=== PATIENT | female | born 1960 | race African-American/Black ===

== ENCOUNTER 2017-02-04 13:41 | Emergency (ER) | payer OTHER ==
[~2017-02-04] VITALS: Ht 172.7 cm; Wt 135.5 kg
[~2017-02-04 13:41] MED LIST: CYCL-36; GLUCTAB; INSULIN; INSULIN SLIDING SCAL; IRBE1TAB37; LANTUSP; LASI20TA; LORA-392; LORT7.5T3; PIOG30; POTA-243; RANI150; SERT100; WELL200T
[2017-02-04 13:47] VITALS: BP 185/89; PULSE 75; RESP 18; TEMP 97.7; O2SAT 100
--- NOTE | 2017-02-04 15:21 | RADRPT ---
EXAM DATE/TIME: 02/04/2017 14:29 [place] COMPARISON: No previous studies available for comparison. INDICATIONS : Shortness of breath and dizziness. MEDICAL HISTORY : Diabetes mellitus type II. Hypertension Asthma. SURGICAL HISTORY : None. ENCOUNTER: Initial ACUITY: 1 day PAIN SCORE: 0/10 LOCATION: Bilateral chest FINDINGS: PA and lateral views of the chest demonstrate the lungs to be symmetrically aerated without evidence of mass, infiltrate or effusion. The cardiomediastinal contours are unremarkable. Osseous structure s are intact. CONCLUSION: No acute disease. Ezekiel Staley MD on February 04, 2017 at 15:19 Board Certified Radiologist. This report was verified electronically.
[2017-02-04] MEDS ORDERED: SODIUM CHLOR 0.9% 1000 ML INJ 1,000 ML IV SCH (15:59)
[2017-02-04] MEDS ORDERED: SODIUM CHLORIDE 0.9% FLUSH 10 ML FLUSH IV FLUSH PRN (16:00)
[2017-02-04] MEDS ORDERED: KETOROLAC TROMETHAMINE 30 MG/ML (IVP) VIAL IVP ONE (16:00)
[2017-02-04] MEDS ORDERED: ONDANSETRON HCL 4 MG/2 ML VIAL IVP ONE (16:00)
[2017-02-04] MEDS ORDERED: BUPR150XL PO (16:07)
[2017-02-04] MEDS ORDERED: NOVONP2 SQ (16:07)
[2017-02-04] MEDS ORDERED: TRAZ1TAB14 PO (16:07)
[2017-02-04] MEDS ORDERED: LYRI200C PO (16:07)
[2017-02-04] MEDS ORDERED: OXYC15TA PO (16:07)
[2017-02-04] MEDS ORDERED: LOSA50TA PO (16:07)
[2017-02-04] MEDS ORDERED: VENL75TA PO (16:07)
[2017-02-04] MEDS ORDERED: METF1000 PO (16:07)
[2017-02-04] MEDS ORDERED: LANTUS2P SQ (16:07)
[2017-02-04] MEDS ORDERED: LORA-392 PO (16:07)
[2017-02-04] MEDS ORDERED: NOVOINJ3 SQ (16:15)
[2017-02-04 16:26] LABS: AUTOMATED NEUTROPHIL # 4.6 TH/MM3 (1.8-7.7); BASOPHIL % 0.4 % (0.0-2.0); EOSINOPHIL # 0.1 TH/MM3 (0-0.4); EOSINOPHIL % 1.1 % (0.0-4.0); HEMATOCRIT 35.4 % (35.0-46.0); HEMO FLAGS DIFF FINAL; LYMPH % 31.2 % (9.0-44.0); LYMPHOCYTE # 2.4 TH/MM3 (1.0-4.8); MEAN CELL VOLUME 86.2 FL (80.0-100.0); MEAN CORPUSCULAR HEMOGLOBIN 28.3 PG (27.0-34.0); MEAN CORPUSCULAR HGB CONC 32.9 % (32.0-36.0); MONO % 6.3 % (0.0-8.0); PLATELET COUNT 287 TH/MM3 (150-450); RED BLOOD COUNT 4.11 MIL/MM3 (4.00-5.30); WHITE BLOOD COUNT 7.6 TH/MM3 (4.0-11.0)
[2017-02-04 16:37] LABS: ALT (GPT) 24 U/L (10-53); AST (GOT) 17 U/L (15-37); BICARBONATE 24.5 MEQ/L (21.0-32.0); BLOOD UREA NITROGEN 11 MG/DL (7-18); GLOMERULAR FILTRATION RATE 79 ML/MIN (>89)
[2017-02-04 16:39] LABS: ALKALINE PHOSPHATASE 170 U/L (45-117); ANION GAP 9 MEQ/L (5-15); CHLORIDE 109 MEQ/L (98-107); SODIUM (NA) 142 MEQ/L (136-145); TOTAL BILIRUBIN ADULT 0.4 MG/DL (0.2-1.0)
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
--- NOTE | 2017-02-05 13:31 | EKG ---
Date Performed: 02/04/2017 Time Performed: 16:23:05 PTAGE: 56 years EKG: Sinus rhythm WITH FIRST DEGREE AV BLOCK ABNORMAL ECG Compared to prior tracing no significant change PREVIOUS TRACING : 05/29/2006 16.48 DOCTOR: Virgilio Sherwood Interpretating Date/Time 02/05/2017 13:28:43
== END 2017-02-04 17:19 | disposition home or self-care (01) ==
LOC: NEPD 13:41
DX: T65.91XA Toxic effect of unspecified substance, accidental (unintentional), initial encounter (principal); R07.89 Other chest pain; R06.2 Wheezing; R11.10 Vomiting, unspecified; E87.6 Hypokalemia; R42 Dizziness and giddiness; R51 Headache; I44.0 Atrioventricular block, first degree; R94.31 Abnormal electrocardiogram [ECG] [EKG]
CPT/HCPCS: 71020; 80053; 83690; 84484; 85025; 93005; 96374; 96375; 99285; J1885; J2405; J7030

== ENCOUNTER 2017-03-02 21:32 | Emergency (ER) | payer OTHER ==
[~2017-03-02] VITALS: Ht 172.7 cm; Wt 130.0 kg
[~2017-03-02 21:32] MED LIST changes: +BUPR150XL PO; -CYCL-36; -GLUCTAB; -INSULIN; -INSULIN SLIDING SCAL; -IRBE1TAB37; +LANTUS2P SQ; -LANTUSP; -LASI20TA; -LORA-392; +LORA-392 PO; -LORT7.5T3; +LOSA50TA PO; +LYRI200C PO; +METF1000 PO; +NOVOINJ3 SQ; +OXYC15TA PO; -PIOG30; -POTA-243; -RANI150; -SERT100; +TRAZ1TAB14 PO; +VENL75TA PO; -WELL200T
[2017-03-02 21:34] VITALS: BP 223/114; PULSE 73; RESP 18; TEMP 98.9; O2SAT 100
[2017-03-03] MEDS ORDERED: TIZA4CAP3 PO (00:22)
[2017-03-03] MEDS ORDERED: POLY17S PO (00:22)
[2017-03-03] MEDS ORDERED: DOCU1CAP66 (00:22)
[2017-03-03] MEDS ORDERED: DICL1KIT5 TOPICAL (00:22)
[2017-03-03] MEDS ORDERED: BACL10TA PO (00:22)
[2017-03-03] MEDS ORDERED: ALBUAER3 INH (00:22)
[2017-03-03] MEDS ORDERED: TRAZ100T10 PO (00:22)
[2017-03-03] MEDS ORDERED: ATOR10TA15 PO (00:22)
[2017-03-03] MEDS ORDERED: VENL150T PO (00:22)
[2017-03-03] MEDS ORDERED: ROBA750T PO (00:43)
[2017-03-03] MEDS ORDERED: MOBI15TA PO (00:43)
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
[2017-03-03] MEDS ORDERED: KETOROLAC TROMETHAMINE 60 MG/2 ML (IM) VIAL IM ONE (00:45)
[2017-03-03] MEDS ORDERED: ORPHENADRINE INJ 60 MG/2 ML AMP IM ONE (00:45)
== END 2017-03-03 01:15 | disposition home or self-care (01) ==
LOC: NEPC 21:32
DX: R51 Headache (principal); M54.2 Cervicalgia; I10 Essential (primary) hypertension; E11.9 Type 2 diabetes mellitus without complications; K21.9 Gastro-esophageal reflux disease without esophagitis; E78.00 Pure hypercholesterolemia, unspecified; J45.909 Unspecified asthma, uncomplicated; F41.9 Anxiety disorder, unspecified; F32.9 Major depressive disorder, single episode, unspecified
CPT/HCPCS: 96372; 99284; J1885; J2360

== ENCOUNTER 2017-03-19 13:59 | Emergency (ER) | payer OTHER ==
[~2017-03-19] VITALS: Ht 165.1 cm; Wt 130.0 kg
[~2017-03-19 13:59] MED LIST changes: +ALBUAER3 INH; +ATOR10TA15 PO; +BACL10TA PO; -BUPR150XL PO; +DICL1KIT5 TOPICAL; +DOCU1CAP66; -LORA-392 PO; +MOBI15TA PO; +POLY17S PO; +ROBA750T PO; +TIZA4CAP3 PO; +TRAZ100T10 PO; -TRAZ1TAB14 PO; +VENL150T PO
[2017-03-19 14:28] VITALS: BP 148/72; PULSE 89; RESP 17; TEMP 97; O2SAT 99
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
--- NOTE | 2017-03-19 16:02 | RADRPT ---
EXAM DATE/TIME: 03/19/2017 15:39 [facility] COMPARISON: No previous studies available for comparison. INDICATIONS : Trauma, patient fell and hit head. RADIATION DOSE: 56.35 CTDIvol (mGy) MEDICAL HISTORY : Hypertension. Diabetes mellitus type 1. SURGICAL HISTORY : Fusion, cervical. Hysterectomy. ENCOUNTER: Initial ACUITY: 1 day PAIN SCALE: 9/10 LOCATION: cranial TECHNIQUE: Multiple contiguous axial images were obtained of the head. Using automated exposure control and adj ustment of the mA and/or kV according to patient size, radiation dose was kept as low as reasonably a chievable to obtain optimal diagnostic quality images. DICOM format image data is available electro nically for review and comparison. FINDINGS: CEREBRUM: The ventricles are normal for age. No evidence of midline shift, mass lesion, hemorrhage or acute in farction. No extra-axial fluid collections are seen. POSTERIOR FOSSA: The cerebellum and brainstem are intact. The 4th ventricle is midline. The cerebellopontine angle i s unremarkable. EXTRACRANIAL: The visualized portion of the orbits is intact. SKULL: The calvaria is intact. No evidence of skull fracture. CONCLUSION: 1. No acute intracranial abnormality. Tanner Luciano MD on March 19, 2017 at 15:59 Board Certified Radiologist. This report was verified electronically.
--- NOTE | 2017-03-19 16:27 | RADRPT ---
EXAM DATE/TIME: 03/19/2017 15:43 [facility] COMPARISON: No previous studies available for comparison. INDICATIONS : Trauma, patient fell hitting head. RADIATION DOSE: 44.0 CTDIvol (mGy) MEDICAL HISTORY : Hypertension. Diabetes mellitus type 1. SURGICAL HISTORY : Fusion, cervical. Hysterectomy. ENCOUNTER: Initial ACUITY: 1 day PAIN SCALE: 8/10 LOCATION: neck TECHNIQUE: Volumetric scanning of the cervical spine was performed. Multiplanar reconstructions in the sagittal, coronal and oblique axial planes were performed. Using automated exposure control and adjustment o f the mA and/or kV according to patient size, radiation dose was kept as low as reasonably achievable to obtain optimal diagnostic quality images. DICOM format image data is available electronically f or review and comparison. FINDINGS: Craniocervical and cervical vertebral body alignment are well-maintained without evidence of traumati c listhesis. Post surgical changes are noted following anterior cervical fusion. A fusion plate is identified from C3-C5. The C5-6 and C6-7 vertebral bodies also appear fused. Bony structures are intact without evidence of acute fracture. Facet joints are satisfactorily aligne d. Significant degenerative disc disease is noted at C2-3. There is disc space narrowing endplate sclero sis and marginal spurring. Significant left-sided foraminal stenosis is noted. Mild to moderate facet arthropathy is identified throughout. There is significant joint space narrowi ng at all levels. Significant arthropathy is identified involving the C1-2 articulation. There is significant sclerosis involving the anterior ring of C1 as well as the odontoid. CONCLUSION: 1. No evidence of acute fracture or traumatic listhesis. 2. Postsurgical changes following an tear cervical fusion. 3. Significant degenerative disease involving the C1-2 articulation and C2-3 intervertebral disc. Kenneth Arteaga MD on March 19, 2017 at 16:20 Board Certified Radiologist. This report was verified electronically.
--- NOTE | 2017-03-19 16:32 | RADRPT ---
EXAM DATE/TIME: 03/19/2017 16:16 [facility] COMPARISON: No previous studies available for comparison. INDICATIONS : Left knee pain; fall today. MEDICAL HISTORY : None. SURGICAL HISTORY : Bilateral total knees. ENCOUNTER: Initial ACUITY: 1 day PAIN SCORE: 10/10 LOCATION: Left knee. FINDINGS: One there is a left knee arthroplasty in place. The blastic components are in anatomic alignment and well-positioned. No significant. Component lucency. Osseous structures are intact without acute fract ure or focal bony destruction. Very small suprapatellar joint effusion. CONCLUSION: 1. Left knee arthroplasty in anatomic alignment without acute bony fracture or evidence for hardware failure. 2. Probable small suprapatellar effusion. José Manuel Macario MD on March 19, 2017 at 16:29 Board Certified Radiologist. This report was verified electronically.
--- NOTE | 2017-03-19 16:38 | RADRPT ---
EXAM DATE/TIME: 03/19/2017 16:20 [facility] COMPARISON: No previous studies available for comparison. INDICATIONS : Right knee pain; fall today. MEDICAL HISTORY : None. SURGICAL HISTORY : Bilateral total knees. ENCOUNTER: Initial ACUITY: 1 day PAIN SCORE: 10/10 LOCATION: Right knee. FINDINGS: Four view examination of the right knee demonstrates a right knee replacement. The femoral and tibial components remain well-seated and in satisfactory alignment. There is no evidence of acute fracture. No significant joint effusion or soft tissue swelling is noted. CONCLUSION: 1. Status post right knee replacement. 2. No evidence of acute fracture or dislocation. Kenneth Arteaga MD on March 19, 2017 at 16:35 Board Certified Radiologist. This report was verified electronically.
--- NOTE | 2017-03-19 16:47 | RADRPT ---
EXAM DATE/TIME: 03/19/2017 15:50 [facility] COMPARISON: No previous studies available for comparison. INDICATIONS : Trauma, patient fell, injuring back. RADIATION DOSE: 32.89 CTDIvol (mGy) ; Combined studies - Thoracic Spine/Lumbar Spine MEDICAL HISTORY : Diabetes mellitus type 1. Hypertension. SURGICAL HISTORY : Fusion, cervical. Hysterectomy. ENCOUNTER: Initial ACUITY: 1 day PAIN SCALE: 9/10 LOCATION: back TECHNIQUE: Volumetric scanning of the thoracic spine was performed. Multiplanar reconstructions in the sagittal , coronal and oblique axial planes were performed. Using automated exposure control and adjustment o f the mA and/or kV according to patient size, radiation dose was kept as low as reasonably achievable to obtain optimal diagnostic quality images. DICOM format image data is available electronically f or review and comparison. FINDINGS: The thoracic vertebral bodies are intact and satisfactorily aligned. There is no evidence of fracture or traumatic listhesis. Mild degenerative disc disease and spondylosis is noted. Posterior elements are satisfactorily aligned and appear intact. There are no soft tissue abnormalities. CONCLUSION: Mild degenerative disc disease with spondylosis. No evidence of acute fracture or traumatic listhesis. Kenneth Arteaga MD on March 19, 2017 at 16:43 Board Certified Radiologist. This report was verified electronically.
--- NOTE | 2017-03-19 17:28 | RADRPT ---
EXAM DATE/TIME: 03/19/2017 15:56 [facility] COMPARISON: No previous studies available for comparison. INDICATIONS : Patient fell, injuring back. RADIATION DOSE: 32.89 CTDIvol (mGy) ; Combined studies - Thoracic Spine/Lumbar Spine MEDICAL HISTORY : Diabetes mellitus type 1. Hypertension. SURGICAL HISTORY : Hysterectomy. Fusion, cervical. ENCOUNTER: Initial ACUITY: 1 day PAIN SCALE: 9/10 LOCATION: cranial TECHNIQUE: Volumetric scanning of the lumbar spine was performed. Multiplanar reconstructions in the sagittal, coronal and oblique axial planes were performed. Using automated exposure control and adjustment of the mA and/or kV according to patient size, radiation dose was kept as low as reasonably achievable t o obtain optimal diagnostic quality images. DICOM format image data is available electronically for review and comparison. FINDINGS: Sagittal and coronal reconstructions show some degenerative disc disease at lumbar level with margina l spurs throughout. Disease is most severe at L4-5 with marked loss of disc height and vacuum disc ph enomena. Vertebral body heights are maintained without fracture. Minimal grade 1 anterolisthesis of L 5 on S1. Benign-appearing 1.8 cm cyst medially in the upper pole of the left kidney. Vacuum joint phe nomenon with marginal spurring in the SI joints bilaterally. Benign-appearing osseous cyst in the rig ht ilium adjacent to the SI joint.. T12-L1: The thecal sac has a normal diameter. No evidence of disc bulge or protrusion. The neural foramina are patent bilaterally. L1-L2: The thecal sac has a normal diameter. No evidence of disc bulge or protrusion. The neural foramina are patent bilaterally. L2-L3: A there is some spurring and hypertrophy of the articulating facets bilaterally, right greater than l eft. This may compromise the right L2 nerve root.. L3-L4: The thecal sac has a normal diameter. No evidence of disc bulge or protrusion. The neural foramina are patent bilaterally. L4-L5: Bilateral facet hypertrophy, right greater than left. Marginal spurring. Spinal canal and neural fora niko are patent. L5-S1: Nominal right facet hypertrophy. Spinal canal and neural foramina are patent. CONCLUSION: 1. Multiple degenerative disc disease and marginal spurring predominantly directed anteriorly just ab out every lumbar level. Marked loss of height and vacuum disc phenomenon at L4-5. 2. Despite degenerative changes and facet hypertrophy, the spinal canal appears to be adequate throug hout. 3. However, there is some narrowing of the right neural foramina at L2-3 predominantly due to facet h ypertrophy which may compromise the right L2 nerve root. 4. Benign-appearing osseous cyst in the right ilium near the SI joint measuring approximately 1 cm in diameter. Degenerative spurring in the SI joints bilaterally. Benign 1.8 cm cyst in the anteromedial aspect of the upper pole of the left kidney. 5. No acute fracture. Chin Pike MD on March 19, 2017 at 16:56 Board Certified Radiologist. This report was verified electronically.
[2017-03-19] MEDS ORDERED: oxyCODONE/ACETAMINOPHEN 5 MG/325 MG TAB PO ONE (17:30)
[2017-03-19 18:15] VITALS: BP 111/59; PULSE 85; RESP 17; O2SAT 93
[2017-03-19] MEDS ORDERED: PERC5TAB12 PO (18:21)
== END 2017-03-19 18:52 | disposition home or self-care (01) ==
LOC: NEPD 13:59
DX: S09.90XA Unspecified injury of head, initial encounter (principal); M54.5 Low back pain; M25.562 Pain in left knee; M25.561 Pain in right knee; W01.0XXA Fall on same level from slipping, tripping and stumbling without subsequent striking against object, initial encounter
CPT/HCPCS: 70450; 72125; 72128; 72131; 73564; 99285